=== PATIENT | female | born 1950 | race Caucasian/White ===

== ENCOUNTER → 2016-12-09 | Outpatient (CLI) | payer OTHER, MEDICARE ==
[~2016-12-09] MED LIST: CEFDINIR300 MG PO; FLONASE 0.05%50 MCG NASAL; LIPITOR10 MG PO; PROMETHAZINE HC25 M2 PO
[2016-12-09 10:00] LABS: CREATININE 0.6 mg/dL (0.6-1.3)
== END ==
LOC: CAT 12-02 10:59
PROVIDERS: Otolaryngology Plastic Surgery within the Head & Neck
DX: H70.10 Chronic mastoiditis, unspecified ear (principal); R42 Dizziness and giddiness

== ENCOUNTER → 2016-12-14 | Outpatient (CLI) | payer OTHER, MEDICARE ==
--- NOTE | ~2016-12-14 | EKG ---
[address] [address] ELECTROCARDIOGRAM REPORT Name: RANDY RAHMAN [place] Room #: REG CLI [id number] Admission: 12/14/16 Attend Phys: Kiko Garrido MD Discharge: Date of : 48 Report #: [id number] THIS REPORT FOR: //name// [facility] Test Date: 2016-12-14 Test Time: 14:46:36 Pat Name: RANDY RAHMAN Department: Room: Gender: F Account Services Representative: Connie DICKERSON : 1950 Requested By: Kiko Garrido Order Number: [id number] MD: Mic De La Fuente Measurements Intervals [place] Rate: 71 P: 63 [place]: 145 QRS: 77 QRSD: 92 T: 22 QT: 388 QTc: 422 Interpretive Statements Sinus rhythm No previous ECG available for comparison Electronically Signed On 12-14-2016 15:18:30 NURSE MONITORING by Mic De La Fuente [email or web address] <ELECTRONICALLY SIGNED> By: Mic De La Fuente MD 12/14/16 1518 1446 1446 Mic De La Fuente MD /[email or web address]
[2016-12-14 14:56] LABS: ABSOLUTE NEUTROPHILS 3.5 thou/uL (1.4-8.2); BASOPHILS 0.4 % (0.0-2.0); EOSINOPHILS 1.8 % (0.0-3.0); HEMATOCRIT 41.8 % (37.0-47.0); HEMOGLOBIN 13.9 gm/dL (12.0-15.0); LYMPHOCYTES 31.5 % (24.0-44.0); MCH 29.2 pg (26.0-34.0); MCHC 33.3 % (28.0-37.0); MCV 87.7 fL (80.0-100.0); MONOCYTES 5.9 % (1.0-8.0); PLATELET COUNT 271 thou/uL (150-400); POLYS 60.4 % (36.0-66.0); RBC 4.77 mil/uL (4.20-5.00); RDW 12.9 % (10.5-14.5); WBC 5.7 thou/uL (4.0-11.0)
[2016-12-14 14:59] LABS: MANUAL DIFF NO
[2016-12-14 15:02] LABS: CALCIUM 9.2 mg/dL (8.5-10.1); CREATININE 0.6 mg/dL (0.6-1.3); POTASSIUM 3.4 mmol/L (3.5-5.1)
[2016-12-14 15:07] LABS: TOTAL BILIRUBIN 0.5 mg/dL (<0.1-1.0); TOTAL PROTEIN 6.7 g/dL (6.4-8.2)
== END ==
LOC: CV 13:58
PROVIDERS: Otolaryngology Plastic Surgery within the Head & Neck
DX: H70.11 Chronic mastoiditis, right ear (principal); H69.83 Other specified disorders of Eustachian tube, bilateral; J30.89 Other allergic rhinitis; H90.71 Mixed conductive and sensorineural hearing loss, unilateral, right ear, with unrestricted hearing on the contralateral side; H93.A1 Pulsatile tinnitus, right ear; H93.8X1 Other specified disorders of right ear; Z96.22 Myringotomy tube(s) status

== ENCOUNTER → 2019-02-14 | Outpatient (CLI) | payer OTHER, MEDICARE | LOC: NUC 10:21 | DX: M81.0 Age-related osteoporosis without current pathological fracture (principal); M85.80 Other specified disorders of bone density and structure, unspecified site; Z78.0 Asymptomatic menopausal state ==